=== PATIENT | male | born 1945 | race Two or more races ===

== ENCOUNTER 2018-05-18 12:41 | Outpatient (CLI) | payer MEDICARE, OTHER ==
[~2018-05-18 12:41] MED LIST: CLON0.1T PO; CLOP75TA15 PO; ESOM40CA PO; HYDR-4384 PO; HYDR12.55 PO; LORA2TAB PO; MECL-102 PO; METO-357 PO; ROSU10TA2 PO; TAMS0.4C34 PO; TELM80TA2 PO
== END 2018-05-18 23:59 | disposition home or self-care (01) ==
LOC: LAB 12:41
PROVIDERS: ATTEND Internal Medicine
DX: M10.071 Idiopathic gout, right ankle and foot (principal)